=== PATIENT | male | born 1945 | race Asian ===

== ENCOUNTER 2017-09-20 20:25 | Inpatient (IN) | payer OTHER ==
[2017-09-20] MEDS ORDERED: NORepinephrine 8MG/250 ML (PMX 250 ML (20:31)
[2017-09-20] MEDS: ONDANSETRON 4 MG INJ IV (20:48)
[2017-09-20] MEDS: FENTAnyl 50 MCG/ML VIAL IV ×2 (20:48→22:17)
[2017-09-20] MEDS: CEFEPIME 2GM/50 ML (PMX) 50 ML IVPB (20:48)
[2017-09-20] MEDS: SODIUM CHLORIDE 0.9% 1L BAG IV* (20:49)
[2017-09-20] MEDS: NORepinephrine 8MG/250 ML (PMX 250 ML IV ×2 (20:55)
[2017-09-20 20:59] LABS: ABNORMAL IP MESSAGE 1; HEMATOCRIT 33.4 % (42.0-52.0); HEMOGLOBIN 10.8 g/dl (14.0-18.0); MEAN CORPUSCULAR HEMOGLOBIN 30.6 pg (29.0-33.0); MEAN CORPUSCULAR HGB CONC 32.3 g/dl (32.0-37.0); MEAN CORPUSCULAR VOLUME 94.6 fl (82.0-101.0); MEAN PLATELET VOLUME 10.1 fl (7.4-10.4); NUCLEATED RED BLOOD CELLS% 0.2 /100WBC (0.0-0.0); PLATELET COUNT 368 10^3/UL (140-415); POSITIVE DIFF @See below; RED BLOOD COUNT 3.53 10^6/ul (4.70-6.10); RED CELL DISTRIBUTION WIDTH 19.1 % (11.5-14.5)
[2017-09-20 20:59] LABS: WHITE BLOOD COUNT 29.6 10^3/ul (4.8-10.8)
[2017-09-20 21:03] LABS: ADD MAN DIFF? YES; PATH REVIEW? YES
[2017-09-20 21:11] LABS: ADD UMIC NO; UR ASCORBIC ACID NEGATIVE (NEGATIVE); UR BILIRUBIN (Dip) NEGATIVE (NEGATIVE); UR BLOOD (Dip) NEGATIVE (NEGATIVE); UR CLARITY CLEAR (CLEAR); UR COLOR YELLOW (YELLOW); UR GLUCOSE (Dip) NEGATIVE (NEGATIVE); UR KETONES (Dip) NEGATIVE (NEGATIVE); UR LEUKOCYTE ESTERASE (Dip) NEGATIVE Leu/ul (NEGATIVE); UR NITRITE (Dip) NEGATIVE (NEGATIVE); UR SPECIFIC GRAVITY (Dip) 1.017 (1.003-1.030); UR TOTAL PROTEIN (Dip) NEGATIVE (NEGATIVE); UR UROBILINOGEN (Dip) NEGATIVE (NEGATIVE)
[2017-09-20] MEDS: VANCOMYCIN 1 GM (PMX) 250 ML IVPB (21:14)
[2017-09-20 21:19] LABS: INR 1.04; PROTIME 13.7 Sec (11.9-14.9); PT RATIO 1.1
[2017-09-20 21:20] LABS: PARTIAL THROMBOPLASTIN TIME 38.6 Sec (25.0-35.0)
[2017-09-20 21:24] LABS: ALANINE AMINOTRANSFERASE 34 IU/L (13-69); ALBUMIN 2.2 g/dl (3.3-4.9); ALBUMIN/GLOBULIN RATIO 0.62; ALKALINE PHOSPHATASE 126 IU/L (42-121); ANION GAP 17 (8-16); ASPARTATE AMINO TRANSFERASE 25 IU/L (15-46); BILIRUBIN,INDIRECT 0.4 mg/dl (0-1.1); BILIRUBIN,TOTAL 0.4 mg/dl (0.2-1.3); BLOOD UREA NITROGEN 94 mg/dl (7-20); CALCIUM 7.3 mg/dl (8.4-10.2); CARBON DIOXIDE 17 mmol/L (21-31); CHLORIDE 100 mmol/L (97-110); CREATININE 2.76 mg/dl (0.61-1.24); GLUCOSE 187 mg/dl (70-220); LIPASE 250 U/L (23-300); POTASSIUM 3.7 mmol/L (3.5-5.1); SODIUM 130 mmol/L (135-144); TOTAL PROTEIN 5.7 g/dl (6.1-8.1)
[2017-09-20 21:28] LABS: LACTIC ACID 4.7 mmol/L (0.5-2.0)
[2017-09-20 21:32] LABS: ANISOCYTOSIS 1+ (0-0); BAND NEUTROPHILS #M 6.2 10^3/ul (0.0-0.6); BAND NEUTROPHILS % (M) 21 % (0-4); LYMPHOCYTES #M 2.3 10^3/ul (0.8-2.9); LYMPHOCYTES % (M) 8 % (15-51); MONOCYTE #M 1.1 10^3/ul (0.3-0.9); MONOCYTES % (M) 4 % (0-11); MYELOCYTES #M 1.1 10^3/ul (0.0-0.0); MYELOCYTES % (M) 4 % (0-0); PLATELET MORPHOLOGY COMMENT @See below; POIKILOCYTOSIS 2+ (0-0); SEG NEUT #M 20.5 10^3/ul (1.6-7.5); SEGMENTED NEUTROPHILS (M) % 63 % (39-77); SMUDGE%M 3 % (0-0)
[2017-09-20] MEDS: SOD CHLORIDE 0.9% 1,000 ML IV ×4 (22:30→23:12)
[2017-09-20 23:01] LABS: LACTIC ACID 3.2 mmol/L (0.5-2.0)
[2017-09-20] MEDS ORDERED: DOPamine-D5W 1.6 MG/ML 250 ML (23:13)
[2017-09-20] MEDS: DOPamine 800 MG in DEXTROSE 5% 230 ML IV (23:30)
[2017-09-20] MEDS ORDERED: EPINEPHrine 0.1 MG/ML SYG (23:46)
[2017-09-21] MEDS ORDERED: EPINEPHrine 0.1 MG/ML SYG ×2 (00:11→00:15)
[2017-09-21] MEDS: EPINEPHrine 4 MG in SOD CHLORIDE 0.9% 246 ML IV (00:23)
[2017-09-21] MEDS ORDERED: ACETAMINOPHEN 325 MG TAB PO (00:30)
[2017-09-21] MEDS ORDERED: ONDANSETRON 4 MG INJ IV (00:30)
[2017-09-21] MEDS: SOD CHLORIDE 0.9% 1,000 ML IV (00:32)
[2017-09-21] MEDS: HYDROCORTISONE 100 MG INJ IV (00:32)
[2017-09-21] MEDS: VASOPRESSIN 60 UNIT in SOD CHLORIDE 0.9% 57 ML IV (01:00)
[2017-09-21] MEDS: NA BICARBONATE 8.4% 50 ML SYG IV (01:48)
[2017-09-21] MEDS ORDERED: PANTOPRAZOLE 40 MG INJ IV (06:00)
[2017-09-21] MEDS ORDERED: HYDROCORTISONE 100 MG INJ IV (06:00)
== END 2017-09-21 02:40 | disposition expired | DRG 871 ==
LOC: ICU 09-21 00:17 → E/R 09-21 05:33
PROC: 5A1935Z Respiratory Ventilation, Less than 24 Consecutive Hours (ICD-10-PCS; principal; 2017-09-21)
PROC: 0BH17EZ Insertion of Endotracheal Airway into Trachea, Via Natural or Artificial Opening (ICD-10-PCS; 2017-09-21)
DX: A41.9 Sepsis, unspecified organism (principal); J18.1 Lobar pneumonia, unspecified organism; J96.00 Acute respiratory failure, unspecified whether with hypoxia or hypercapnia; R65.21 Severe sepsis with septic shock; L03.311 Cellulitis of abdominal wall; I10 Essential (primary) hypertension; E11.9 Type 2 diabetes mellitus without complications; Z79.01 Long term (current) use of anticoagulants; I46.9 Cardiac arrest, cause unspecified; I95.9 Hypotension, unspecified
CPT/HCPCS: 31500; 36415; 71045; 80053; 81003; 83605; 83690; 84484; 85025; 85610; 85730; 87040; 87086; 92950; 93005; 94002; 94003; 96374; 96375; 99291-25